=== PATIENT | male | born 1990 | race Caucasian/White ===

== ENCOUNTER 2017-04-07 10:28 | Emergency (ER) | payer OTHER ==
[2017-04-07 10:40] VITALS: O2SAT 99
[2017-04-07] MEDS ORDERED: Vistaril 50 MG/ML IM ONE ×2 (10:59→11:07)
--- NOTE | 2017-04-07 11:05 | ERPHSYRPT ---
- History of Present Illness Time Seen by Provider: 04/07/17 10:36 Source: patient Patient Subjective Stated Complaint: pt states he has been without his vicodin and tramadol for the past 3 days and is experiencing withdraw. pt c/o back pain that is worse today than his normal back pain. Triage Nursing Assessment: pt pink, warm, dry. pt ambulated into ER without difficulty. Physician History: CC: withdrawal Hx: 26 y/o male patient of Dr Medley. He states he has been on vicodin and ultram for many years since an accident when he was 15 y/o. He takes Rx from Dr Medley and gets it filled at [email or web address] or [facility] in . He states has not had any meds for a few days. He has chills, vomiting, diarrhea, crawly skin and feels like in opiate withdrawal. No fever or chills. No cough. No chest or abd pain. Timing/Duration: day(s) (few) Allergies/Adverse Reactions: cyclobenzaprine [From Flexeril] Allergy (Verified 04/07/17 10:39) morphine Allergy (Verified 04/07/17 10:39) Hx Tetanus, Diphtheria Vaccination/Date Given: Yes (up to date) Hx Influenza Vaccination/Date Given: Yes Hx Pneumococcal Vaccination/Date Given: No Immunizations Up to Date: Yes - Review of Systems Constitutional: Malaise, No Fever, No Chills Eyes: No Symptoms Ears, Nose, & Throat: No Symptoms Respiratory: No Cough Cardiac: No Chest Pain Abdominal/Gastrointestinal: Nausea, Vomiting, Diarrhea, No Abdominal Pain Genitourinary Symptoms: No Dysuria Musculoskeletal: Myalgias Skin: No Rash Neurological: No Headache All Other Systems: Reviewed and Negative - Past Medical History Pertinent Past Medical History: Yes Other Medical History: chronic pain - Past Surgical History Past Surgical History: Yes Gastrointestinal: Appendectomy - Social History Smoking Status: Current every day smoker How long have you smoked: 11 Exposure to second hand smoke: Yes Drug Use: none Patient Lives Alone: No - Nursing Vital Signs Nursing Vital Signs: Initial Vital Signs Temperature 98.4 F Temperature Source Oral Pulse Rate 92 Respiratory Rate 18 Blood Pressure [Right Arm] 131/97 Pain Intensity 10 - Physical Exam General Appearance: alert Eye Exam: PERRL/EOMI Ears, Nose, Throat Exam: normal ENT inspection, moist mucous membranes Neck Exam: normal inspection, non-tender, supple Respiratory Exam: normal breath sounds, lungs clear Cardiovascular Exam: regular rate/rhythm, No murmur Gastrointestinal/Abdomen Exam: soft, No tenderness, No distention Back Exam: normal inspection, normal range of motion Extremity Exam: normal inspection, normal range of motion Neurologic Exam: alert, oriented x 3, cooperative, 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, sensation nml, No motor deficits Skin Exam: warm, dry, No rash SpO2 Interpretation: normal SpO2: 99 Oxygen Delivery: Room Air - Course Nursing assessment & vital signs reviewed: Yes Ordered Tests: Active Orders 24 hr Category Date Time Status Clean Catch Urine Specimen STAT Care 04/07/17 10:59 Active UA Stat Lab 04/07/17 11:00 Completed Medication Summary Discontinued Medications Generic Name Dose Route Start Last Admin Trade Name Sheldon PRN Reason Stop Dose Admin Hydroxyzine HCl 50 mg 04/07/17 10:59 04/07/17 11:10 Vistaril 50 Mg/Ml IM 04/07/17 11:00 50 mg STAT ONE Administration Hydroxyzine HCl Confirm 04/07/17 11:07 Vistaril 50 Mg/Ml Administered 04/07/17 11:08 Dose 50 mg IM [email or web address] ONE Lab/Rad Data: Laboratory Results 04/07/17 Range/Units 11:00 Ur Collection Type VOID Urine Color YELLOW (YELLOW) Urine Appearance CLEAR (CLEAR) Urine pH 6.0 (5-6) Ur Specific [place] 1.015 (1.005-1.025) Urine Protein NEGATIVE (Negative) Urine Glucose (UA) NEGATIVE (NEGATIVE) mg/dL Urine Ketones NEGATIVE (NEGATIVE) Urine Nitrite NEGATIVE (NEGATIVE) Urine Bilirubin NEGATIVE (NEGATIVE) Urine Urobilinogen 0.2 (0-1) mg/dL Urine WBC (Auto) NEGATIVE (NEGATIVE) Urine RBC (Auto) NEGATIVE (0-5) [place]/ul Specimen Received 04/07/17 1104 - Progress Progress Note: 04/07/17 11:04 INSPECT reviewed and no records in INSPECT. Even questioned patient about name and and pharmacies. Will give vistaril. He declines IV or blood draw. Taking po fluids. Advised follow up with Dr Medley for control of his situation. 04/07/17 11:27 Ua negative. Will Rx po vistaril. Rx motrin. Advised follow up. Counseled pt/family regarding: lab results, diagnosis, need for follow-up - Departure Time of Disposition: 11:27 Departure Disposition: Home Clinical Impression: Opioid withdrawal Condition: Stable Critical Care Time: No Referrals: RICKY MEDLEY MD [NON-STAFF PHY W/O PRIVILEGES] - Instructions: Chronic Pain -- Adult, Drug Withdrawal Additional Instructions: No driving or operating machinery. Rx hydroxyzine. See Dr Medley for follow up. Rx motrin for pain. Prescriptions: Hydroxyzine HCl 1 tab PO Q6H PRN PRN #20 tablet PRN Reason: rash,rest Ibuprofen 600 mg PO Q6H PRN PRN #20 tablet PRN Reason: Pain
[2017-04-07 11:07] LABS: Collection Type VOID
[2017-04-07 11:08] LABS: COMPLETE URINE MICROSCOPIC? NO
[2017-04-07 11:35] VITALS: BP 139/62; PULSE 82
== END 2017-04-07 11:35 | disposition home or self-care (01) ==
LOC: ED 10:28
DX: F11.23 Opioid dependence with withdrawal (principal)
CPT/HCPCS: 81002; 96372; 99283; 99284; J3410

== ENCOUNTER 2018-02-17 00:39 | Emergency (ER) | payer OTHER, SELFPAY ==
--- NOTE | 2018-02-17 01:12 | ERPHSYRPT ---
- History of Present Illness Time Seen by Provider: 02/17/18 00:43 Source: patient Exam Limitations: no limitations Patient Subjective Stated Complaint: Upset with ex-girlfriend not coming and seeing the kids today. Triage Nursing Assessment: Pt came in by police due to his mother called the police and stated that her son had been in the garage all day and had a rope hanging from the ceiling and he stated that he was going to kill himself. Pt stated to this nurse that he was hearing voices telling him to kill himself and that there was a hallucination of a man behind a tree taunting him. He stated that this was the only time he has heard voices. BP 151/109, sitting on edge of bed cussing and voicing his problems and shaking his legs, Pt said that he needs Adderal to focus and calm down Physician History: YESTERDAY PT HAD SUICIDAL THOUGHTS OF HANGING HIMSELF. FOR THE PAST 5 HOURS PT HAS HAD ANGER ISSUES RELATED TO HIS CHILDREN'S MOTHER, HAS BEEN HEARING 5 DIFFERENT VOICES TELLING HIM TO KILL HIMSELF AND HAS HAD VISUAL HALLUCINATIONS OF A MAN BEHIND A TREE TAUNTING HIM. PT HAS NEVER HAD AUDITORY HALLUCINATIONS BEFORE TONIGHT. Allergies/Adverse Reactions: cyclobenzaprine [From Flexeril] Allergy (Verified 04/07/17 10:39) morphine Allergy (Verified 04/07/17 10:39) Hx Tetanus, Diphtheria Vaccination/Date Given: Yes (up to date) Hx Influenza Vaccination/Date Given: Yes Hx Pneumococcal Vaccination/Date Given: No - Review of Systems Skin: Other (PSORIASIS) Psychological: Suicidal Ideations (YESTERDAY), Hallucinations (TONIGHT) All Other Systems: Reviewed and Negative - Past Medical History Pertinent Past Medical History: Yes Other Medical History: chronic pain - Past Surgical History Past Surgical History: Yes Gastrointestinal: Appendectomy - Social History Smoking Status: Current every day smoker How long have you smoked: 11 Exposure to second hand smoke: Yes Drug Use: methamphetamines Patient Lives Alone: No - Nursing Vital Signs Nursing Vital Signs: Initial Vital Signs Temperature 98.2 F 02/17/18 00:42 Pulse Rate 67 02/17/18 00:42 Blood Pressure 151/109 02/17/18 00:42 O2 Sat by Pulse Oximetry 97 02/17/18 00:42 Pain Scale Pain Intensity 0 - Physical Exam General Appearance: alert, anxiety Eye Exam: PERRL/EOMI Ears, Nose, Throat Exam: pharynx normal, other (CERUMEN OCCLUSION OF LEFT EAR) Neck Exam: normal inspection Respiratory Exam: lungs clear Cardiovascular Exam: normal heart sounds Gastrointestinal/Abdomen Exam: soft, normal bowel sounds Back Exam: normal range of motion Extremity Exam: No pedal edema Neurologic Exam: alert, cooperative, agitation SpO2 Interpretation: normal SpO2: 97 Oxygen Delivery: Room Air - Course Nursing assessment & vital signs reviewed: Yes Ordered Tests: Active Orders 24 hr Category Date Time Status ACETAMINOPHEN Stat Lab 02/17/18 01:25 Completed CBC W DIFF Stat Lab 02/17/18 01:25 Completed CMP Stat Lab 02/17/18 01:25 Completed ETHYL ALCOHOL Stat Lab 02/17/18 01:25 Completed MAG [MAGNESIUM] Stat Lab 02/17/18 01:25 Completed SALICYLATE Stat Lab 02/17/18 01:25 Completed UA W/RFX UR CULTURE Stat Lab 02/17/18 03:10 Completed Urine Triage Profile Stat Lab 02/17/18 03:10 Completed Lab/Rad Data: Laboratory Result Diagrams 02/17/18 01:25 02/17/18 01:25 Laboratory Results 02/17/18 02/17/18 02/17/18 Range/Units 03:10 03:10 01:25 WBC (4.0-10.5) K/mm3 RBC (4.1-5.6) M/mm3 Hgb (12.5-18.0) gm/dl Hct (42-50) % MCV (78-100) fl MCH (26-32) pg MCHC (32-36) g/dl RDW (11.5-14.0) % Plt Count (150-450) K/mm3 MPV (6-9.5) fl Gran % (36.0-66.0) % Eos # (Auto) (0-0.5) Absolute Lymphs (auto) (1.0-4.6) Absolute Monos (auto) (0.0-1.3) Lymphocytes % (24.0-44.0) % Monocytes % (0.0-12.0) % Eosinophils % (0.00-5.0) % Basophils % (0.0-0.4) % Absolute Granulocytes (1.4-6.9) Basophils # (0-0.4) Sodium (137-145) mmol/L Potassium (3.5-5.1) mmol/L Chloride (98-107) mmol/L Carbon Dioxide (22-30) mmol/L Anion Gap (5-15) MEQ/L BUN (9-20) mg/dL Creatinine (0.66-1.25) mg/dL Estimated GFR ML/MIN Glucose (74-106) mg/dL Calcium (8.4-10.2) mg/dL Magnesium 2.0 (1.6-2.3) mg/dL Total Bilirubin (0.2-1.3) mg/dL AST (17-59) U/L ALT (0-50) U/L Alkaline Phosphatase (38-126) U/L Serum Total Protein (6.3-8.2) g/dL Albumin (3.5-5.0) g/dL Ur Collection Type CLEAN CATCH Urine Color YELLOW (YELLOW) Urine Appearance CLEAR (CLEAR) Urine pH 5.0 (5-6) Ur Specific [place] 1.015 (1.005-1.025) Urine Protein NEGATIVE (Negative) Urine Ketones NEGATIVE (NEGATIVE) Urine Blood NEGATIVE (0-5) [place]/ul Urine Nitrite NEGATIVE (NEGATIVE) Urine Bilirubin NEGATIVE (NEGATIVE) Urine Urobilinogen NORMAL (0-1) mg/dL Ur Leukocyte Esterase NEGATIVE (NEGATIVE) Urine Culture Reflexed NO (NO) Urine Glucose NEGATIVE (NEGATIVE) mg/dL Salicylates (2-20) mg/dL Urine Opiates Level NEGATIVE (NEGATIVE) Ur Methadone NEGATIVE (NEGATIVE) Acetaminophen (10-30) ug/ml Urine Barbiturates NEGATIVE (NEGATIVE) Ur Phencyclidine (PCP) NEGATIVE (NEGATIVE) Urine Amphetamine POSITIVE (NEGATIVE) U Benzodiazepine Level NEGATIVE (NEGATIVE) Urine Cocaine NEGATIVE (NEGATIVE) Urine Marijuana (THC) NEGATIVE (NEGATIVE) Ethyl Alcohol (0-9) mg/dL Specimen Received 02/17/18 0310 02/17/18 02/17/18 Range/Units 01:25 01:25 WBC 9.3 (4.0-10.5) K/mm3 RBC 4.71 (4.1-5.6) M/mm3 Hgb 13.9 (12.5-18.0) gm/dl Hct 40.3 L (42-50) % MCV 85.6 (78-100) fl MCH 29.5 (26-32) pg MCHC 34.5 (32-36) g/dl RDW 13.0 (11.5-14.0) % Plt Count 265 (150-450) K/mm3 MPV 10.6 H (6-9.5) fl Gran % 69.9 H (36.0-66.0) % Eos # (Auto) 0.19 (0-0.5) Absolute Lymphs (auto) 1.47 (1.0-4.6) Absolute Monos (auto) 1.11 (0.0-1.3) Lymphocytes % 15.9 L (24.0-44.0) % Monocytes % 12.0 (0.0-12.0) % Eosinophils % 2.0 (0.00-5.0) % Basophils % 0.2 (0.0-0.4) % Absolute Granulocytes 6.48 (1.4-6.9) Basophils # 0.02 (0-0.4) Sodium 140 (137-145) mmol/L Potassium 3.9 (3.5-5.1) mmol/L Chloride 104 (98-107) mmol/L Carbon Dioxide 26 (22-30) mmol/L Anion Gap 13.8 (5-15) MEQ/L BUN 10 (9-20) mg/dL Creatinine 0.95 (0.66-1.25) mg/dL Estimated GFR > 60 ML/MIN Glucose 91 (74-106) mg/dL Calcium 9.4 (8.4-10.2) mg/dL Magnesium (1.6-2.3) mg/dL Total Bilirubin 0.20 (0.2-1.3) mg/dL AST 30 (17-59) U/L ALT 28 (0-50) U/L Alkaline Phosphatase 87 (38-126) U/L Serum Total Protein 6.9 (6.3-8.2) g/dL Albumin 4.0 (3.5-5.0) g/dL Ur Collection Type Urine Color (YELLOW) Urine Appearance (CLEAR) Urine pH (5-6) Ur Specific [place] (1.005-1.025) Urine Protein (Negative) Urine Ketones (NEGATIVE) Urine Blood (0-5) [place]/ul Urine Nitrite (NEGATIVE) Urine Bilirubin (NEGATIVE) Urine Urobilinogen (0-1) mg/dL Ur Leukocyte Esterase (NEGATIVE) Urine Culture Reflexed (NO) Urine Glucose (NEGATIVE) mg/dL Salicylates < 1.0 L (2-20) mg/dL Urine Opiates Level (NEGATIVE) Ur Methadone (NEGATIVE) Acetaminophen < 10 L (10-30) ug/ml Urine Barbiturates (NEGATIVE) Ur Phencyclidine (PCP) (NEGATIVE) Urine Amphetamine (NEGATIVE) U Benzodiazepine Level (NEGATIVE) Urine Cocaine (NEGATIVE) Urine Marijuana (THC) (NEGATIVE) Ethyl Alcohol < 10 H (0-9) mg/dL Specimen Received - Progress Discussed with .: Other (DR WILLS(PSYCHIATRIST - ALICIA [facility]ATES)([id number]) ACCEPTED PT FOR TRANSFER TO [facility] A DIRECT ADMISSION.) - Departure Time of Disposition: 06:05 Departure Disposition: Transfer ([facility]) Clinical Impression: SUICIDAL IDEATIONS, HALLUCINATIONS Condition: Stable Critical Care Time: No Referrals: Provider,Unknown [Primary Care Provider] -
[2018-02-17 01:31] LABS: BASOPHIL % 0.2 % (0.0-0.4); Basophil (Absolute #) 0.02 (0-0.4); Eosinophil (Absolute #) 0.19 (0-0.5); Granulocyte Absolute (ANC) 6.48 (1.4-6.9); Granulocytes % 69.9 % (36.0-66.0); Hematocrit 40.3 % (42-50); Hemoglobin 13.9 gm/dl (12.5-18.0); Lymphocyte (Absolute #) 1.47 (1.0-4.6); Lymphocytes % 15.9 % (24.0-44.0); Mean Cell Volume 85.6 fl (78-100); Mean Corpuscular Hemoglobin 29.5 pg (26-32); Mean Corpuscular Hgb Concent. 34.5 g/dl (32-36); Mean Platelet Volume 10.6 fl (6-9.5); Monocyte (Absolute #) 1.11 (0.0-1.3); Platelet Count 265 K/mm3 (150-450); Red Blood Count 4.71 M/mm3 (4.1-5.6); White Blood Count 9.3 K/mm3 (4.0-10.5)
[2018-02-17 02:03] LABS: ALKALINE PHOSPHATASE 87 U/L (38-126); ANION GAP 13.8 MEQ/L (5-15); BLOOD UREA NITROGEN 10 mg/dL (9-20); CHLORIDE 104 mmol/L (98-107); Calcium 9.4 mg/dL (8.4-10.2); Carbon Dioxide 26 mmol/L (22-30); Creatinine 1 0.95 mg/dL (0.66-1.25); Glucose 91 mg/dL (74-106); Potassium 3.9 mmol/L (3.5-5.1); SGOT/AST 30 U/L (17-59); SGPT/ALT 28 U/L (0-50); SODIUM 140 mmol/L (137-145); Total Protein 6.9 g/dL (6.3-8.2)
[2018-02-17 02:04] LABS: ACETAMINOPHEN < 10 ug/ml (10-30); ETHYL ALCOHOL < 10 mg/dL (0-9); SALICYLATE < 1.0 mg/dL (2-20)
[2018-02-17 03:13] LABS: Appearance CLEAR (CLEAR); Leukocyte Esterase NEGATIVE (NEGATIVE); Nitrite NEGATIVE (NEGATIVE); Protein,Urine Dip NEGATIVE (Negative); Specific Gravity 1.015 (1.005-1.025)
[2018-02-17 03:14] LABS: Bilirubin NEGATIVE (NEGATIVE); Blood NEGATIVE Ery/ul (0-5); Glucose NEGATIVE (NEGATIVE); Ketones NEGATIVE (NEGATIVE); Urobilinogen NORMAL mg/dL (0-1)
[2018-02-17 03:28] LABS: Barbiturate,Urine NEGATIVE (NEGATIVE); Benzodiazepine,Urine NEGATIVE (NEGATIVE); Cocaine,Urine NEGATIVE (NEGATIVE); Methadone,Urine NEGATIVE (NEGATIVE); Opiate,Urine NEGATIVE (NEGATIVE); PCP,Urine NEGATIVE (NEGATIVE); THC,Urine NEGATIVE (NEGATIVE)
[2018-02-17 04:51] LABS: Amphetamine,Urine POSITIVE (NEGATIVE)
[2018-02-17 07:04] VITALS: BP 120/72; PULSE 88; O2SAT 98
== END 2018-02-17 08:38 ==
LOC: ED 00:39
DX: R45.851 Suicidal ideations (principal); R44.3 Hallucinations, unspecified
CPT/HCPCS: 36415; 80053; 80302; 80307; 81002; 83735; 85025; 99285; G0481; G0480

== ENCOUNTER 2018-07-08 13:14 | Emergency (ER) | payer OTHER ==
--- NOTE | 2018-07-08 13:52 | ERPHSYRPT ---
- History of Present Illness Time Seen by Provider: 07/08/18 13:40 Source: patient Exam Limitations: no limitations Patient Subjective Stated Complaint: states lower legs began swelling and itching five days ago. today states he can't take it anymore. concerned about swelling and redness. Triage Nursing Assessment: ambulated to room per self. skin w/d, color normal. moderated edema noted to bilat lower legs. redness and open areas noted. slight drainage noted. Physician History: 28-year-old white male with history of chronic psoriasis, chronic back pain, bipolar disorder. Patient states she chronically has psoriasis on the lower extremities however the last week he is having edema and erythema and swelling of the billateral lower extremities He states this has been itching. He also states he is beginning to have a erythematous rash on his arms. [place]. Past medical history includes chronic pain, psoriasis, bipolar disorder. Past surgical history includes appendectomy. Social history history of tobacco use history of meth use in the past. Timing/Duration: other (chronic psoriasis but edemm and swelling bilateral legs for 1 week) Severity: moderate Modifying Factors: Improves With: nothing Associated Symptoms: rash (Erythematous rash to bilateral legs), No nausea, No vomiting, No abdominal pain, No shortness of breath, No heartburn, No diaphoresis, No cough, No chills, No chest pain, No fever, No headaches, No loss of appetite, No malaise Allergies/Adverse Reactions: cyclobenzaprine [From Flexeril] Allergy (Verified 04/07/17 10:39) morphine Allergy (Verified 04/07/17 10:39) Hx Tetanus, Diphtheria Vaccination/Date Given: Yes Hx Influenza Vaccination/Date Given: Yes Hx Pneumococcal Vaccination/Date Given: No - Review of Systems Constitutional: No Fever, No Chills Eyes: No Symptoms Ears, Nose, & Throat: No Symptoms Respiratory: No Cough, No Dyspnea Cardiac: No Chest Pain, No Edema, No Syncope Abdominal/Gastrointestinal: No Abdominal Pain, No Nausea, No Vomiting, No Diarrhea Genitourinary Symptoms: No Dysuria Musculoskeletal: Other (edema bilateral legs and feet) Skin: Rash (psoriatic rash on bilateral legs rash on arms) Neurological: No Dizziness, No Focal Weakness, No Sensory Changes Psychological: No Symptoms Endocrine: No Symptoms All Other Systems: Reviewed and Negative - Past Medical History Pertinent Past Medical History: Yes Musculoskeletal History: Other Psycho-Social History: Bipolar Other Medical History: chronic pain in back - Past Surgical History Past Surgical History: Yes Gastrointestinal: Appendectomy - Social History Smoking Status: Current every day smoker How long have you smoked: 18 Exposure to second hand smoke: No Drug Use: none Patient Lives Alone: No - Nursing Vital Signs Nursing Vital Signs: Initial Vital Signs Temperature 97.5 F 07/08/18 13:23 Pulse Rate 76 07/08/18 13:23 Respiratory Rate 16 07/08/18 13:23 Blood Pressure 165/86 07/08/18 13:23 O2 Sat by Pulse Oximetry 100 07/08/18 13:23 Pain Scale Pain Intensity 10 - Physical Exam General Appearance: no apparent distress, alert Eye Exam: PERRL/EOMI, eyes nml inspection Ears, Nose, Throat Exam: normal ENT inspection, TMs normal, pharynx normal, moist mucous membranes Neck Exam: normal inspection, non-tender, supple, full range of motion Respiratory Exam: normal breath sounds, lungs clear, No respiratory distress Cardiovascular Exam: regular rate/rhythm, normal heart sounds, normal peripheral pulses Gastrointestinal/Abdomen Exam: soft, normal bowel sounds, No tenderness, No mass Back Exam: normal inspection, normal range of motion, No CVA tenderness, No vertebral tenderness Extremity Exam: other (bilateral chronic-appearing psoriatic rash on lower legs , bilateral lower leg edema, mild erythema to the lower legs does not feel hot.) Neurologic Exam: alert, oriented x 3, cooperative, 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 Erythematous irregular raised rash on bilateral distal arms.) SpO2 Interpretation: normal (100%) SpO2: 100 Oxygen Delivery: Room Air - Course Nursing assessment & vital signs reviewed: Yes Ordered Tests: Active Orders 24 hr Category Date Time Status Accucheck STAT Care 07/08/18 13:44 Active CULTURE,WOUND Stat Lab 07/08/18 14:13 Received - Progress Progress: improved Progress Note: 07/08/18 13:52 This is a 28-year-old white male with history of psoriasis he states he has chronic rash on his lower extremities, however for the past week he's had a increasing edema to the bilateral lower legs he states that he has had erythema to the bilateral lower legs and he is beginning to get an erythematous rash on his arms [place] He states he is concerned he might have diabetes. Patient states he does not have a local physician. Will go ahead and culture the rash on his lower legs. He appears to have psoriasis with possible overlying contact dermatitis as well as early cellulitis. Will go ahead and give patient tapering dose of prednisone, write for Keflex and Bactrim. also plaved on vistaril 50 mg orally three times a day as needed for itching. Will check Accu-Chek. 07/08/18 14:24 - Departure Time of Disposition: 13:54 Departure Disposition: Home Clinical Impression: Psoriasis Contact dermatitis Qualifiers: Contact dermatitis type: unspecified Contact dermatitis trigger: unspecified trigger Qualified Code(s): L25.9 - Unspecified contact dermatitis, unspecified cause Cellulitis Qualifiers: Site of cellulitis: extremity Site of cellulitis of extremity: lower extremity Laterality: unspecified laterality Qualified Code(s): L03.119 - Cellulitis of unspecified part of limb Condition: Fair Critical Care Time: No Referrals: DOCTOR,NO FAMILY [Primary Care Provider] - Additional Instructions: Return home. Tapering dose of prednisone as directed. Keflex as directed. Bactrim as directed. Vistaril 50 mg orally 3 times a day as needed for itching. Follow-up with your family doctor (list) call and make an appointment. Return for acute distress or for severe symptoms. Prescriptions: Cephalexin Mh 500 mg [Keflex 500 mg] 500 mg PO QID #40 capsule Hydroxyzine Pamoate [Vistaril] 50 mg PO TIDPRN #15 capsule Smz/Tmp Ds Tablet [Bactrim Ds Tablet] 1 tab PO BID #20 tablet
[2018-07-08 14:24] VITALS: BP 120/57; PULSE 56
[2018-07-08 14:25] VITALS: O2SAT 100
== END 2018-07-08 14:22 | disposition home or self-care (01) ==
LOC: ED 13:14
DX: L40.9 Psoriasis, unspecified (principal); L25.9 Unspecified contact dermatitis, unspecified cause; L03.116 Cellulitis of left lower limb; L03.115 Cellulitis of right lower limb
CPT/HCPCS: 82962; 87070; 87077; 87186; 99283